=== PATIENT | male | born 1955 | race Caucasian/White ===

== ENCOUNTER 2019-02-19 09:19 | Emergency (ER) | payer MEDICARE ==
[~2019-02-19] VITALS: Ht 177.8 cm; Wt 120.0 kg
--- NOTE | 2019-02-19 09:54 | NUR ---
report from FIONA Hudson, to assume care of pt.
[2019-02-19] MEDS ORDERED: FENTANYL PF 100 MCG/2ML IVPush ONE (10:00)
[2019-02-19] MEDS ORDERED: SODIUM CHLORIDE FLUSH 10ML SYR IVF ONE ×2 (10:00→11:00)
--- NOTE | 2019-02-19 10:16 | NUR ---
PT RESTING IN ROOM WATCHING TV. VSS. NO NEEDS EXPRESSED. POC DISCUSSED. LAB AT BS. AWAITING MRI.
[2019-02-19] MEDS ORDERED: FENTANYL PF 100 MCG/2ML ONE ×2 (10:20→12:55)
[2019-02-19] MEDS ORDERED: PLEASE ENTER ALLERGIES MC SCH (10:30)
[2019-02-19] MEDS ORDERED: SODIUM CHLORIDE 0.9% 1,000 ML IV ONE ×2 (10:37→16:53)
--- NOTE | 2019-02-19 10:50 | NUR ---
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
[2019-02-19] MEDS ORDERED: DIAZEPAM 5 MG/ML, 2ML IV ONE (11:00)
[2019-02-19 11:01] LABS: MEAN CORPUSCULAR HEMOGLOBIN 31.1 pg (27.5-34.5); MEAN CORPUSCULAR HGB CONC 32.9 g/dL (33.2-36.2); MEAN CORPUSCULAR VOLUME 94.6 fL (81-97); MEAN PLATELET VOLUME 7.7 fL (7.4-10.4); PLATELET COUNT 134 x10^3/uL (130-400); RED BLOOD COUNT 4.19 x10^6/uL (4.38-5.82); RED CELL DISTRIBUTION WIDTH 13.8 % (9.4-14.8)
[2019-02-19 11:11] LABS: ALANINE AMINOTRANSFERASE 56 U/L (12-78); ALBUMIN 2.5 g/dL (3.4-5.0); ANION GAP 9 mmol/L (5-15); CALCIUM 8.6 mg/dL (8.5-10.1); CHLORIDE 103 mmol/L (98-107); CREATININE 0.91 mg/dL (0.7-1.3)
[2019-02-19 11:13] LABS: MD YES
[2019-02-19 11:14] LABS: ALKALINE PHOSPHATASE 169 U/L (45-117); BILIRUBIN,TOTAL 0.5 mg/dL (0.2-1.0); TOTAL PROTEIN 6.7 g/dL (6.4-8.2)
[2019-02-19 11:16] LABS: BAND#(MANUAL) 3.39 x10^3/uL; BANDS%(MANUAL) 16 % (0-7); BASOS#(MANUAL) 0.21 x10^3/uL (0-0.1); BASOS% (MANUAL) 1 % (0-1); LYMPH#(MANUAL) 2.33 x10^3/uL (1-3.4); LYMPHS% (MANUAL) 11 % (22-44); MONOS#(MANUAL) 1.06 x10^3/uL (0.3-2.7); MONOS% (MANUAL) 5 % (2-9); SEGS% (MANUAL) 67 % (42-75)
[2019-02-19 11:17] LABS: <RBC MORPHOLOGY> NORMAL
[2019-02-19 11:18] LABS: <PLATELET ESTIMATE> ADEQUATE; <PLT MORPHOLOGY> NORMAL PLT MORPH; PMNS WITH VACUOLES 1+; TOXIC GRAN 1+
[2019-02-19] MEDS ORDERED: PIPERACILLIN/TAZO/PMX 3.375GM 50 ML ONE (11:24)
[2019-02-19] MEDS ORDERED: PIPERACILLIN/TAZO/PMX 3.375GM 50 ML IVPB ONE (11:30)
[2019-02-19] MEDS ORDERED: VANCOMYCIN PER PHARMACY MC ONE (11:30)
[2019-02-19] MEDS ORDERED: VANCOMYCIN 1,800 MG in SODIUM CHLORIDE 0.9% 250 ML IV ONE (11:30)
--- NOTE | 2019-02-19 11:44 | NUR ---
PT RESTING IN ROOM WITH EYES CLOSED. VSS. PT MEDICATED PER APR. UA COLLECTED FROM EXISTING IBARRA CATHETER USING STERILE TECHNIQUE. NO NEEDS EXPRESSED. CALL LIGHT WITHIN REACH. AWAITING. MRI.
[2019-02-19 12:05] LABS: MICROSCOPIC AUTO
[2019-02-19 12:07] LABS: CULTURE INDICATED? NO
--- NOTE | 2019-02-19 12:33 | NUR ---
PT TO MRI. IV VANCO PAUSED AT 12:30.
[2019-02-19 13:14] LABS: HCT (SEDRATE) 39.6 % (39.2-51.8)
[2019-02-19] MEDS ORDERED: ACETAMINOPHEN 500 MG TABLET PO ONE (14:30)
[2019-02-19] MEDS ORDERED: SODIUM CHLORIDE 0.9% 1,000ML IVBOLUS ONE (14:30)
--- NOTE | 2019-02-19 14:40 | NUR ---
PT BACK FROM MRI, LOW BP, RESP RATE 25-30, SATS 96% ON 5LNC. 84% ON 2LN INCREASE TO 5LNC PT A&0x4, STATES HE IS NUMB, MOVED PT TO TRAUMA ROOM Addendum: 02/19/19 at 1632 by AVELINO ASSUMED CARE AT THIS TIME Addendum: 02/19/19 at 1638 by [email or web address] ASSUMED CARE AT THIS TIME
--- NOTE | 2019-02-19 14:49 | NUR ---
BLOOD NOTICED IN IBARRA TUBE, NOTIFIED.
--- NOTE | 2019-02-19 14:56 | NUR ---
dr bernabe spoke with dr smalls
[2019-02-19] MEDS ORDERED: DEXAMETHASONE 4 MG/ML, 5ML ONE (15:00)
[2019-02-19] MEDS ORDERED: DEXAMETHASONE 4 MG/ML, 1ML IVPush SCH (15:00)
--- NOTE | 2019-02-19 15:15 | NUR ---
CENTRAL LINE INSERTION BY DR. GUZMAN, VERBAL CONSENT DONE PRIOR. STOP TIME COMPLETED
--- NOTE | 2019-02-19 15:26 | NUR ---
[facility]
[2019-02-19 15:28] LABS: PROTHROMBIN TIME 10.5 Seconds (9.6-11.5)
[2019-02-19] MEDS ORDERED: NOREPINEPHRINE 4 MG in SODIUM CHLORIDE 0.9% 246 ML IV PRN (15:39)
--- NOTE | 2019-02-19 15:58 | NUR ---
PER MD MACIEL TO USE CENTRAL LINE, LEVOFED STARTED
--- NOTE | 2019-02-19 16:12 | NUR ---
CALLED PHARMACY REGARDING RESTARTING VANCO, PER PHARMACY OK TO RESTART. PT TOLERATED LEVO WELL BP 121/59.
--- NOTE | 2019-02-19 16:19 | NUR ---
DC IBARRA, RE-INSERTED 14FRENCH CATH USING STERILE TECHNIQUE, PT TOLERATED WELL.
--- NOTE | 2019-02-19 16:27 | NUR ---
PT MORE ALERT AND TALKATIVE. ASKED FOR THIS RN TO SCRATCH NOSE, UNABLE TO MOVE ARMS AND STATES HE DID NOT FEEL IBARRA INSERTION, MD AWARE AND NOTIFIED. PT CAN FEEL ABOVE NIPPLE LINE
--- NOTE | 2019-02-19 16:41 | NUR ---
late entry 1345: mri called requesting more pain medication. pt given 50mcg fentanyl prior to leaving for mri. another dose of 50mcg fentanyl administered while in mri (2 doses of 25mcg given). d/t increased o2 requirements, this rn stayed in mri to monitor pt. mri scanner malfunctioning and unable to complete scan. on the way back from mri, pt became hypotensive and hypoxic and began stating that he was numb. Dr. Gambino and trauma RN to bs. second piv established with us guidance. ivf boluses infusing per verbal orders from Dr. Gambino. pt moved to trauma room 4.
--- NOTE | 2019-02-19 16:51 | NUR ---
Assumed care of pt in conjunction w/ Brad JAIMES. Report to [facility] ED tech intern Kevin.
--- NOTE | 2019-02-19 17:03 | NUR ---
VANCO INFUSED. PT SLEEPING LIGHTLY. MIVF INFUSING PER MD. RESP RATE IMPROVED TO 18.
[2019-02-19 17:31] VITALS: BP 104/58
--- NOTE | 2019-02-19 17:32 | NUR ---
PT TO BE CAREFLIGHTED TO [facility], AWAITING HELICOPTER. VSS, NO CHANGE IN CONDITION. A&OX4 GCS 15. ANSWERS QUESTIONS APPROPRIATELY. HX CATARACTS, UNABLE TO VISUALIZE PUPIL CONSTRICTION. SENSATION IN FACE AND UPPER TORSO TO JUST BELOW NIPPLE LINE. DOES NOT WITHDRAW TO PAIN IN LOWER/UPPER EXTREM. NSR ON MONITOR. LUNG SOUNDS DIMINISHED L LUNG. ABD ROUNDED AND SOFT, BS PRESENT. IBARRA DRAINING YELLOW URINE W/ SOME SMALL BLOOD CLOTS. MONITORING PRESSORS CLOSELY.
--- NOTE | 2019-02-19 18:01 | NUR ---
REPORT TO [facility], PT MOV[facility] TO [facility]. CARE TRANSFERRED TO EMS CREW. BELONGINGS W/ PT. UPDATED [facility] ON PT LEAVING.
--- NOTE | 2019-02-20 04:06 | NUR ---
PT WITH POSITIVE BLOOD CULTURE RESULTS. PT HAS BEEN TRANSFERRED TO [facility] ICU. THIS WAS CALLED TO THE PRIMARY NURSE WELL FAXED TO THEM PER THEIR REQUEST FOR CONTINUITY OF CARE.
== END 2019-02-19 18:58 | disposition short-term general hospital (02) ==
LOC: ED 14:52
DX: A41.9 Sepsis, unspecified organism (principal); R65.21 Severe sepsis with septic shock; G06.2 Extradural and subdural abscess, unspecified; I95.9 Hypotension, unspecified; M54.2 Cervicalgia; M54.5 Low back pain; F15.90 Other stimulant use, unspecified, uncomplicated; Z87.891 Personal history of nicotine dependence
CPT/HCPCS: 36415; 36556; 36600; 51702; 71045; 80053; 81001; 82803; 83605; 84145; 85025; 85610; 85651; 85730; 87040; 87077; 87147; 87186; 93005; 96361; 96365; 96366; 96368; 96375; 99291; J1100; J2543; J3010; J3370; J7030; J7050